=== PATIENT | female | born 1970 | race Caucasian/White ===

== ENCOUNTER 2018-04-21 09:31 | Emergency (ER) | payer MEDICAID ==
[~2018-04-21] VITALS: Ht 167.6 cm; Wt 88.8 kg
[~2018-04-21 09:31] MED LIST: ACYCLOVIR800 MG PO; AMOXICILLIN/CL875 MG PO; AMOXICILLIN500 MG OR; AMOXICILLIN500 MG PO; AUGMENTIN875 MG PO; AUGMENTIN875TAB OR; AUGMENTIN875TAB PO; AVIANE OR; AVIANE PO; BUPROPION HCL150 M2 PO; BUPROPION300 MG PO; CEFDINIR300 MG OR; CIPRO XR500 MG PO; CIPRO500 MG PO; CIPROFLOXACN500 MG PO; CLOBETASOL0.053 EX; CONTOUR NEXT TEST ST TOP; CYCLOBENZAPR10 MG OR; CYCLOBENZAPR10 MG PO; CYCLOBENZAPRINE10 MG PO; CYMBALTA30 MG PO; CYMBALTA60 MG PO; DEPO-MEDROL80 MG/ML IM; DICLOFENAC SODI75 M1 OR; DICLOFENAC SODI75 M1 PO; DICLOFENAC75 MG PO; DIFLUCAN150 MG PO; FIORICET PO; FLEXERIL OR; FLEXERIL10 MG PO; FLEXERIL5 M1 PO; FLONASE NASAL50 MCG; FLORASTOR250 M1 PO; FLOXIN OTIC OT; FLUCONAZOLE150 MG; FLUCONAZOLE150 MG PO; GLUCOMETER; HYDROCO/APAP1 TA9 PO; IRON CHEWS OR; KEFLEX500 MG OR; KEFLEX500 MG PO; KETOROLAC60 MG/2 ML IJ; LANCETS 30G30 G XX; LISINOPRIL10 MG PO; LISINOPRIL5 MG PO; LORTAB 10 OR; LORTAB 5 OR; LOVASTATIN10 M1 PO; MECLIZINE25 MG PO; MEDDOSEPAK PO; MELOXICAM7.5 MG PO; METFORMIN500 M1 PO; METFORMIN500 MG PO; MOBIC15 MG PO; MUCINEX600 MG PO; MULTIVITAMI9 PO; NABUMETONE750 MG PO; NAPROSYN500 MG PO; NAPROXEN500 MG OR; NO HOME MEDS; NORCO1 TA1 PO; NYSTATIN100000 M2 EX; NYSTATIN100000 M3 TOP; OMEPRAZOLE20 M2 PO; OXAPROZIN600 MG OR; PRENATAL1 TAB OR; PRILOSEC OTC20 MG OR; PRILOSEC20 MG PO; ROPINIROLE0.25 MG PO; ROPINIROLE0.5 MG PO; ROPINIROLE1 MG PO; SILVER SULFADIAZI1 % EX; STOOL SOFTEN1 TAB OR; STOOL SOFTENER100 MG PO; TRAMADOL HCL50 MG OR; TRAMADOL HCL50 MG PO; ULTRAM50 M1 PO; ULTRAM50 MG OR; VICODIN HP1 TA1 PO; VITAMIN B 12100 MCG PO; VITAMIN B-12500 MCG PO; ZESTRIL5 M1 PO; ZITHROMAX500 MG PO; ZOFRAN4 M1 OR; ZOLOFT100 MG OR; ZYRTEC-D ALG OR; [UNRECOGNIZED DRUG - SUPPLY]; test strips SC
[2018-04-21 09:34] VITALS: BP 144/94
[2018-04-21] MEDS ORDERED: HYDROCODONE BITA1 M1 PO (09:46)
[2018-04-21] MEDS ORDERED: AMOXIL400 MG/52 PO (09:52)
== END 2018-04-21 10:07 | disposition home or self-care (01) ==
LOC: ED 09:31
DX: J02.0 Streptococcal pharyngitis (principal); E11.9 Type 2 diabetes mellitus without complications; I10 Essential (primary) hypertension; F32.9 Major depressive disorder, single episode, unspecified; F41.9 Anxiety disorder, unspecified; R05 Cough; E66.01 Morbid (severe) obesity due to excess calories; E55.9 Vitamin D deficiency, unspecified; K29.60 Other gastritis without bleeding; E66.9 Obesity, unspecified; G47.33 Obstructive sleep apnea (adult) (pediatric); G25.81 Restless legs syndrome; E11.8 Type 2 diabetes mellitus with unspecified complications; E78.00 Pure hypercholesterolemia, unspecified

== ENCOUNTER 2020-11-09 06:01 | Emergency (ER) | payer OTHER ==
[~2020-11-09] VITALS: Ht 167.6 cm; Wt 75.0 kg
[~2020-11-09 06:01] MED LIST changes: +AMOXIL400 MG/52 PO; +DICYCLOMINE20 MG PO; +HYDROCODONE BITA1 M1 PO; +ZOFRAN4 MG/TAB PO
[2020-11-09] MEDS ORDERED: AMOXICILLIN250 M2 PO (06:17)
[2020-11-09 06:23] VITALS: BP 149/82
== END 2020-11-09 06:27 | disposition home or self-care (01) ==
LOC: ED 06:01
DX: K04.7 Periapical abscess without sinus (principal); K02.9 Dental caries, unspecified; E11.9 Type 2 diabetes mellitus without complications; I10 Essential (primary) hypertension; F32.9 Major depressive disorder, single episode, unspecified; F41.9 Anxiety disorder, unspecified; Z98.84 Bariatric surgery status

== ENCOUNTER 2022-05-09 08:52 | Emergency (ER) | payer OTHER ==
[~2022-05-09] VITALS: Ht 167.6 cm; Wt 85.7 kg
[~2022-05-09 08:52] MED LIST changes: +AMOXICILLIN250 M2 PO
[2022-05-09 10:00] VITALS: BP 148/87
== END 2022-05-09 10:16 | disposition home or self-care (01) ==
LOC: ED 08:52
DX: H92.02 Otalgia, left ear (principal); E11.9 Type 2 diabetes mellitus without complications; I10 Essential (primary) hypertension; F32.A Depression, unspecified; F41.9 Anxiety disorder, unspecified; Z98.84 Bariatric surgery status

== ENCOUNTER 2023-01-21 23:35 | Emergency (ER) | payer OTHER ==
[~2023-01-21] VITALS: Ht 167.6 cm; Wt 76.2 kg
[~2023-01-21 23:35] MED LIST changes: -BUPROPION300 MG PO; +HYDROCODONE BIT1 TA7 PO; -HYDROCODONE BITA1 M1 PO; +LIPITOR20 M1 PO; +LISINOPRIL30 MG PO; +METOPROLOL TART50 MG PO; +MONTELUKAST SOD10 MG PO; +WELLBUTRIN200 M1 PO; -ZESTRIL5 M1 PO; +ZOLPIDEM5 M1 PO
[2023-01-22 05:07] VITALS: BP 141/84
== END 2023-01-22 05:07 | disposition home or self-care (01) ==
LOC: ED 23:35
DX: G89.18 Other acute postprocedural pain (principal); S82.832D Other fracture of upper and lower end of left fibula, subsequent encounter for closed fracture with routine healing; I10 Essential (primary) hypertension; E11.9 Type 2 diabetes mellitus without complications; E78.5 Hyperlipidemia, unspecified; G47.30 Sleep apnea, unspecified; X58.XXXD Exposure to other specified factors, subsequent encounter; Z88.5 Allergy status to narcotic agent; Z88.2 Allergy status to sulfonamides; Z98.890 Other specified postprocedural states